=== PATIENT | male | born 1965 | race Caucasian/White ===

== ENCOUNTER → 2017-03-14 | Outpatient (REF) | LOC: ZLAB.WCH 10:33 | DX: Z01.89 Encounter for other specified special examinations (principal) | CPT/HCPCS: G0103 ==

== ENCOUNTER → 2018-06-21 | Outpatient (REF) | LOC: ZLAB.WCH 16:27 | DX: Z01.89 Encounter for other specified special examinations (principal) | CPT/HCPCS: G0103 ==